=== PATIENT | male | born 1940 | race Caucasian/White ===

== ENCOUNTER → 2017-12-03 | Outpatient (CLI) | payer OTHER ==
[~2017-12-03] MED LIST: ALBUTEROL2.5 MG/3 M INH; APAP650 PO; AVELOX 400 MG400 MG PO; CLARITIN10 MG PO; COQ PO; DIFLUCAN PO; FINASTERIDE5 MG PO; FISH PO; FISHOIL PO; GRAPE SEED EXTR50 MG PO; GRAPE SEED100 MG PO; LEVOTHROID112 MCG PO; LEVOTHYROXIN0.075 MG PO; LOVASTAT40 PO; MUCINEX PO; MULTIVITAMINS PO; OMEGA-31000 M1 PO; PREDNISONE 10 M10 MG PO; PROAIR HFA8.5 GM INH; SPIRIVA INH; SYMBICORT160 MCG/4. INH; VITAMIN B PO; VITAMIN D1000 UNI1 PO; VITAMINC500 PO; VITCB500GO PO; XOPENEX HFA15 GM IH; ZYVOX600 MG PO
== END ==
LOC: M.RAD 11:01
DX: J44.9 Chronic obstructive pulmonary disease, unspecified (principal)

== ENCOUNTER → 2018-02-06 | Outpatient (CLI) | payer OTHER | LOC: M.RAD 10:13 | DX: J98.11 Atelectasis (principal); J98.4 Other disorders of lung; R09.89 Other specified symptoms and signs involving the circulatory and respiratory systems; J44.9 Chronic obstructive pulmonary disease, unspecified ==